=== PATIENT | female | born 1975 | race Caucasian/White ===

== ENCOUNTER 2021-08-26 13:12 | Emergency (ER) | payer OTHER ==
[~2021-08-26] VITALS: Ht 165.1 cm; Wt 68.5 kg
[2021-08-26 13:34] LABS: BASOPHILS % (AUTO) 0 % (0-10); EOSINOPHILS # (AUTO) 0.2 10^3/uL (0.0-0.3); EOSINOPHILS % (AUTO) 1 % (0-10); HEMATOCRIT 37 % (35-52); HEMOGLOBIN 11.7 g/dL (11.5-16.0); LYMPHOCYTES # (AUTO) 2.4 10^3/uL (1.0-4.0); LYMPHOCYTES % (AUTO) 21 % (12-44); MEAN CORPUSCULAR HEMOGLOBIN 23 pg (25-34); MEAN CORPUSCULAR HGB CONC 32 g/dL (32-36); MEAN CORPUSCULAR VOLUME 73 fL (80-99); MEAN PLATELET VOLUME 10.5 fL (9.0-12.2); MONOCYTES # (AUTO) 0.7 10^3/uL (0.0-1.0); MONOCYTES % (AUTO) 6 % (0-12); NEUTROPHILS # (AUTO) 8.2 10^3/uL (1.8-7.8); NEUTROPHILS % (AUTO) 71 % (42-75); PLATELET COUNT 413 10^3/uL (130-400); WHITE BLOOD COUNT 11.5 10^3/uL (4.3-11.0)
--- NOTE | 2021-08-26 13:43 | Diagnostic Imaging Report ---
INDICATION: Chest pain. TIME OF EXAM: 01:35 p.m. COMPARISON: No prior studies are available for comparison. FINDINGS: The heart size is normal. The pulmonary vascularity is unremarkable. The lungs are clear. No infiltrate, effusion or pneumothorax is detected. IMPRESSION: No acute cardiopulmonary process is detected. Dictated by: Dictated on workstation # [id number]
[2021-08-26 13:55] LABS: LYMPHOCYTES % (MANUAL) 27 %; MONOCYTES % (MANUAL) 5 %; NEUTROPHILS % (MANUAL) 68 %
[2021-08-26 13:56] LABS: ANISOCYTOSIS SLIGHT; HYPOCHROMASIA SLIGHT; MICROCYTOSIS MODERATE
[2021-08-26 13:58] LABS: ALANINE AMINOTRANSFERASE 15 U/L (0-55); ALBUMIN 4.7 GM/DL (3.2-4.5); ALKALINE PHOSPHATASE 79 U/L (40-136); BILIRUBIN,TOTAL 0.3 MG/DL (0.1-1.0); BUN/CREATININE RATIO 12; CALCIUM 9.4 MG/DL (8.5-10.1); CARBON DIOXIDE 22 MMOL/L (21-32); CHLORIDE 104 MMOL/L (98-107); CREATININE SERUM 0.83 MG/DL (0.60-1.30); GFR ESTIMATED 89; GLUCOSE 115 MG/DL (70-105); POTASSIUM 3.4 MMOL/L (3.6-5.0); SODIUM 138 MMOL/L (135-145); TOTAL PROTEIN 7.6 GM/DL (6.4-8.2)
--- NOTE | 2021-08-26 14:20 | ED Chest Pain ---
General Chief Complaint: Chest Pain Stated Complaint: CHEST PAIN Nursing Triage Note: Patient reports she was driving approximately 1.5 hours ago and had sudden onset of left upper back pain and left chest/rib cage pain. She also reports she has a burning sensation in her chest similar to heartburn. 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 Epigastric pain is described as dull and burning. No fever, chills, sweats, nausea and vomi ting. No leg pain and swelling. No history of PE or DVT. No other acute symptoms or complaints. No fever, chills, or sweats. No other acutes symptoms or complaints. Timing/Duration: 1-3 hours Severity/Quality: moderate, other Location: other Radiation: other Activities at Onset: other Prior CP/Workup: other Modifying Factors: improves with other Allergies and Home Medications Allergies Coded Allergies: No Known Drug Allergies (Unverified , 08/26/21) Patient Home Medication List Home Medication List Reviewed: Yes Review of Systems Review of Systems Constitutional: see HPI EENTM: See HPI Respiratory: See HPI Cardiovascular: See HPI Gastrointestinal: See HPI Genitourinary: See HPI Musculoskeletal: see HPI Skin: see HPI Psychiatric/Neurological: See HPI Endocrine: See HPI Hematologic/Lymphatic: See HPI All Other Systems Reviewed Negative Unless Noted: Yes Past Knvgidw-Mlmiuf-Lvijqc Hx Patient Social History Tobacco Use?: No Substance use?: No Alcohol Use?: No Pt feels they are or have been: No Immunizations Up To Date COVID19 Vaccine Pediatric Acute Care Unit Nurse: Moderna Physical Exam Vital Signs Vital Signs - First Documented 08/26/21 13:15 Temp 37.1 Pulse 95 Resp 20 B/P (MAP) 156/83 (107) Pulse Ox 97 O2 Delivery Room Air Capillary Refill : Less Than 3 Seconds Height, Weight, BMI Height: '" Weight: lbs. oz. kg; 25.00 BMI Method: General Appearance: No Apparent Distress, WD/WN HEENT: PERRL/EOMI Neck: Full Range of Motion, Normal Inspection Respiratory: Chest Non Tender, Lungs Clear, No Accessory Muscle Use, No Respiratory Distress Cardiovascular: Regular Rate, Rhythm, No Edema Gastrointestinal: Non Tender, Soft Extremity: Normal Capillary Refill, Non Tender, No Calf Tenderness Neurologic/Psychiatric: Alert, Oriented x3 Skin: Normal Color, Warm/Dry Focused Exam Sepsis Stage: Ruled Out Progress/Results/Core Measures Results/Orders Lab Results Laboratory Tests Test 08/26/21 13:20 08/26/21 15:37 Range/Units White Blood Count 11.5 H 4.3-11.0 10^3/uL Red Blood Count 5.04 3.80-5.11 10^6/uL Hemoglobin 11.7 11.5-16.0 g/dL Hematocrit 37 35-52 % Mean Corpuscular Volume 73 L 80-99 fL Mean Corpuscular Hemoglobin 23 L 25-34 pg Mean Corpuscular Hemoglobin Concent 32 32-36 g/dL Red Cell Distribution Width 18.0 H 10.0-14.5 % Platelet Count 413 H 130-400 10^3/uL Mean Platelet Volume 10.5 9.0-12.2 fL Immature Granulocyte % (Auto) 0 % Neutrophils (%) (Auto) 71 42-75 % Lymphocytes (%) (Auto) 21 12-44 % Monocytes (%) (Auto) 6 0-12 % Eosinophils (%) (Auto) 1 0-10 % Basophils (%) (Auto) 0 0-10 % Neutrophils # (Auto) 8.2 H 1.8-7.8 10^3/uL Lymphocytes # (Auto) 2.4 1.0-4.0 10^3/uL Monocytes # (Auto) 0.7 0.0-1.0 10^3/uL Eosinophils # (Auto) 0.2 0.0-0.3 10^3/uL Basophils # (Auto) 0.0 0.0-0.1 10^3/uL Immature Granulocyte # (Auto) 0.0 0.0-0.1 10^3/uL Neutrophils % (Manual) 68 % Lymphocytes % (Manual) 27 % Monocytes % (Manual) 5 % Hypochromasia SLIGHT Poikilocytosis restaurant maintenance technician Anisocytosis SLIGHT Microcytosis MODERATE D-Dimer 0.57 H 0.00-0.49 UG/ML Sodium Level 138 135-145 MMOL/L Potassium Level 3.4 L 3.6-5.0 MMOL/L Chloride Level 104 98-107 MMOL/L Carbon Dioxide Level 22 21-32 MMOL/L Anion Gap 12 5-14 MMOL/L Blood Urea Nitrogen 10 7-18 MG/DL Creatinine 0.83 0.60-1.30 MG/DL Estimat Glomerular Filtration Rate 89 BUN/Creatinine Ratio 12 Glucose Level 115 H 70-105 MG/DL Calcium Level 9.4 8.5-10.1 MG/DL Corrected Calcium 8.5-10.1 MG/DL Total Bilirubin 0.3 0.1-1.0 MG/DL Aspartate Amino Transf (AST/SGOT) 18 5-34 U/L Alanine Aminotransferase (ALT/SGPT) 15 0-55 U/L Alkaline Phosphatase 79 40-136 U/L Troponin I < 0.30 <0.30 NG/ML Total Protein 7.6 6.4-8.2 GM/DL Albumin 4.7 H 3.2-4.5 GM/DL My Orders Orders - SUE ANDERSON DO Cbc And Manual Diff (08/26/21 13:26) Comprehensive Metabolic Panel (08/26/21 13:26) Troponin I Fs (08/26/21 13:26) Fibrin Degradation Products (08/26/21 13:26) Chest 1 View Ap/Pa Only (08/26/21 13:26) Ekg Tracing (08/26/21 13:26) Urine Bedside (08/26/21 13:56) Ct Angio Chest W (08/26/21 14:20) Ketorolac Injection (Toradol Injection) (08/26/21 14:30) Iohexol Injection (Omnipaque 350 Mg/Ml 1 (08/26/21 14:30) Received Contrast (Hold Metformin- Contr (08/26/21 14:30) Sodium Chloride Flush (Catheter Flush Sy (08/26/21 14:30) Ns (Ivpb) (Sodium Chloride 0.9% Ivpb Bag (08/26/21 14:30) Troponin I Fs (08/26/21 15:27) Famotidine Tablet (Pepcid Tablet) (08/26/21 15:30) Ondansetron Oral Dissolve Tab (Zofran (08/26/21 15:27) Medications Given in ED Current Medications Medications Dose Ordered Sig/Catia Route Start Time Stop Time Status Last Admin Dose Admin Famotidine 20 mg ONCE ONCE PO 08/26/21 15:30 08/26/21 15:31 DC 08/26/21 15:35 20 MG Iohexol 100 ml ONCE ONCE IV 08/26/21 14:30 08/26/21 14:31 DC 08/26/21 14:47 100 ML Ketorolac Tromethamine 30 mg ONCE ONCE IVP 08/26/21 14:30 08/26/21 14:31 DC 08/26/21 14:32 30 MG Sodium Chloride 10 ml NEEDED PRN IV 08/26/21 14:30 08/26/21 14:47 10 ML Sodium Chloride 100 ml ONCE ONCE IV 08/26/21 14:30 08/26/21 14:31 DC 08/26/21 14:47 100 ML Vital Signs/I&O 08/26/21 13:15 Temp 37.1 Pulse 95 Resp 20 B/P (MAP) 156/83 (107) Pulse Ox 97 O2 Delivery Room Air Blood Pressure Mean: 107 Departure Communication (Admissions) EKG: NAD Atypical chest pain, EKG nondiagnostic. EKG, repeat troponin nondiagnostic. Tylenol and Pepcid given. Recommendations for supportive care watchful waiting and PCP follow-up. Return precautions reviewed. Patient verbalizes understandi ng agreement with discharge instructions prior to departure. Impression Primary Impression: Chest pain Disposition: 01 HOME, SELF-CARE Condition: Stable Departure-Patient Inst. Decision time for Depature: 15:26 Patient Instructions: Chest Pain, Adult ED Add. Discharge Instructions: You were evaluated in the emergency department for chest pain. EKG lab and imaging were performed and are nondiagnostic. The exact cause of your symptoms has not been determined. Please take Tylenol and Pepcid as directed. Follow-up with your PCP early next week if symptoms persist. Return to the ED if new or worsening symptoms All discharge instructions reviewed with patient and/or family. Voiced understanding. SUE ANDERSON DO Aug 26, 2021 14:20
[2021-08-26] MEDS ORDERED: HOLD METFORMIN - RECEIVED CONTRAST 20 ML VIAL IV SCH (14:30)
[2021-08-26] MEDS ORDERED: NS 100 ML (IVPB) BAG IV ONE (14:30)
[2021-08-26] MEDS ORDERED: CATHETER FLUSH 10 ML SYR IV PRN (14:30)
[2021-08-26] MEDS ORDERED: IOHEXOL 350 MG/ML 100 ML (OMNIPAQUE 350) VIAL IV ONE (14:30)
[2021-08-26] MEDS ORDERED: KETOROLAC 30 MG/ML VIAL IVP ONE (14:30)
--- NOTE | 2021-08-26 15:01 | Diagnostic Imaging Report ---
PROCEDURE: CT angiography of the chest with contrast. TECHNIQUE: Multiple contiguous axial images were obtained through the chest after uneventful bolus administration of intravenous contrast. 3D reconstructed CTA MIP acquisitions were also performed. Auto Exposure Controls were utilized during the CT exam to meet ALARA standards for radiation dose reduction. INDICATION: Chest pain. Elevated D-dimer. COMPARISON: Chest radiograph performed the same date. FINDINGS: This helical CT pulmonary angiogram is diagnostic to the subsegmental level branches of the pulmonary artery and demonstrates no pulmonary emboli. The heart and great vessels are unremarkable. There is no pericardial effusion. There is no axillary, mediastinal, or hilar adenopathy. The lungs demonstrate no consolidation, nodules, or other parenchymal abnormality. No pleural effusion is seen. Osseous structures appear normal. Limited views of the upper abdomen are unremarkable. IMPRESSION: 1. No acute pulmonary embolus. Negative CT chest. Dictated by: Dictated on workstation # [id number]
[2021-08-26] MEDS ORDERED: ONDANSETRON 4 MG (ZOFRAN) ORAL DISSOLVE TAB PO STA (15:27)
[2021-08-26] MEDS ORDERED: FAMOTIDINE 20 MG (PEPCID) TABLET PO ONE (15:30)
[2021-08-26 16:06] VITALS: BP 115/64
== END 2021-08-26 16:10 | disposition home or self-care (01) ==
LOC: ER FS 13:14
DX: R07.89 Other chest pain (principal)
CPT/HCPCS: 36415; 71045; 71275; 80053; 84484; 85007; 85027; 85379; 93005; Q9967